=== PATIENT | female | born 1955 | race Caucasian/White ===

== ENCOUNTER 2017-01-12 02:15 | Inpatient (IN) | payer OTHER, MEDICARE ==
--- NOTE | ~2017-01-12 | DS ---
Unit #: [id number] #: [id number] Patient: MICHAEL MUÑOZ [id number] [address] [address] [id number] MR#: [id number] NAME: MICHAEL MUÑOZ. ROOM: 562 Age: 61 Sex: F Admission Date: 01/12/2017 : 1955 Discharge Date: 01/19/2017 Attending Physician: Dell Page M.D. Primary Care Physician: Dell Page M.D. DISCHARGE SUMMARY DISCHARGE DIAGNOSES 1. Right lower lobe community acquired pneumonia. 2. Chronic obstructive pulmonary disease exacerbation. 3. Acute on chronic hypoxemic hypercarbic respiratory failure. 4. Compensated respiratory acidosis. 5. Anemia. DISCHARGE MEDICATIONS 1. Advair 250/50 one inhalation b.i.d. 2. Spiriva 18 mcg 1 inhalation daily. 3. Albuterol inhaler 2 puffs q.4 h. p.r.n. 4. Aspirin, enteric coated 325 mg daily. 5. Prednisone 40 mg for 3 days, decreased by 10 mg every 3 days until off. 6. Zithromax 250 daily times 3 days. 7. O2 at 2 liters. FOLLOWUP Follow up in my office in two to three weeks. HOSPITAL COURSE The patient was admitted with right lower lobe community acquired pneumonia and exacerbation of chronic obstructive pulmonary disease with hypoxemic hypercarbic respiratory failure. Please refer to history and physical. She was treated with inhaled bronchodilators, IV Solu-Medrol, Rocephin and Zithromax. She had slow but gradual improvement with clearing of her wheezes by discharge. Her steroids have been weaned. She had a follow-up chest x-ray done, which showed clearing of the right lower lobe infiltrate. She will follow up in the office in two to three weeks. Dictated by... Rosita Lopez/link TD: 01/20/2017 09:09 JOB #: [id number] Unit #: [id number] #: [id number] Patient: MICHAEL MUÑOZ DISCHARGE SUMMARY X Dell Page MD DISCHARGE SUMMARY
--- NOTE | ~2017-01-12 | HP ---
Unit #: [id number] #: [id number] Patient: MICHAEL MUÑOZ [id number] [address] [place], [place] [address] [id number] MR#: [id number] NAME: MICHAEL MUÑOZ ROOM: 562 Age: 61 Sex: F Admission Date: 01/12/2017 : 1955 Attending Physician: Dell Page M.D. Primary Care Physician: Dell Page M.D. HISTORY AND PHYSICAL HISTORY OF PRESENT ILLNESS Ms. Muñoz is a 61-year-old white female who presents with a several day history of increased shortness of breath and cough with sputum. She said she has been laid up in bed for the last three days and has been sleeping a lot. She has felt very weak. She has had fever. She denied any chest pain, nausea, vomiting or diarrhea. She called me last night and told me she was more short of breath and coughing up yellow phlegm. We called in an antibiotic and some prednisone, but she worsened through the night and presented to the emergency room. She said she has been in the process of moving and has moved in with her daughter. Things are quite stressful there. In the emergency room chest x-ray was done, which revealed a very mild right lower lobe pneumonia with some blunting of the right costophrenic angle. White blood cell count was elevated at approximately 16,000. We were called to admit the patient. She received 2 g of Rocephin the emergency room and 500 Zithromax in the emergency room. She also received 60 of prednisone. In the emergency room her saturation on 3 liters was 94%. Her pulse was 115 and temperature was 101.5. Her flu screen was negative. PAST MEDICAL HISTORY 1. Severe chronic obstructive pulmonary disease with chronic respiratory failure, maintained on home O2. 2. History of polycythemia, followed by Dr. Rebolledo. 3. Bone marrow biopsy in the past which was unremarkable. SOCIAL HISTORY Reformed smoker times about 10 years. No alcohol or illicit drugs. Currently does not have a primary care doctor. FAMILY HISTORY Negative for coronary artery disease. ALLERGIES No known drug allergies. HOME MEDICATIONS 1. Advair 250/50. 2. Spiriva. 3. Albuterol. 4. Enteric coated aspirin. REVIEW OF SYSTEMS CONSTITUTIONAL: Has had some fever and chills. HEENT: Some rhinorrhea, nasal congestion. Unit #: [id number] #: [id number] Patient: MICHAEL MUÑOZ PULMONARY: As noted. CARDIAC: No chest pain or palpitations. GI: No nausea or vomiting. : No hematuria or dysuria. ENDOCRINE: No polyuria or polydipsia. HEMATOLOGIC: No easy bruising or bleeding. Does have a history of polycythemia. Had been on hydroxyurea. SKIN: No rash. PSYCHIATRIC: Denies depression. PHYSICAL EXAMINATION GENERAL: White female in no distress. VITALS: Blood pressure 106/76, pulse 76, respiratory rate 22, afebrile, oxygen saturation 98.9. HEENT: Normocephalic, atraumatic. Pupils equal, round and reactive. Sclerae nonicteric. Nasal passages patent. Posterior pharynx clear. Very poor dentition. Mucous membranes moist. NECK: Supple. Trachea midline. No cervical or supraclavicular lymphadenopathy. LUNGS: Diminished breath sounds. Prolonged expiratory phase. Mild expiratory wheeze. HEART: Regular rate and rhythm. Could not appreciate murmur, rub or gallop. ABDOMEN: Nontender. Bowel sounds present. No hepatosplenomegaly. EXTREMITIES: Without clubbing, cyanosis or edema. NEUROLOGIC: Awake, alert and oriented times three. Cranial nerves grossly intact. Muscle strength symmetric bilaterally. Affect calm. SKIN: Warm and dry. DIAGNOSTIC STUDIES IMAGING: Chest x-ray personally reviewed as noted. LABORATORY: As noted. All personally reviewed. ASSESSMENT 1. Right lower lobe community acquired pneumonia. 2. Acute and chronic hypoxemic hypercarbic respiratory failure. 3. Acute exacerbation of chronic obstructive pulmonary disease. 4. History of polycythemia. PLAN Will treat with inhaled bronchodilators, IV Solu-Medrol, cover with broad spectrum antibiotics for community acquired pneumonia with Rocephin and Zithromax. Administer O2 to maintain adequate saturations. DVT prophylaxis. Further recommendations pending this. Dictated by Rosita Lopez/link TD: 01/12/2017 11:43 JOB #: [id number] CC: Dell Page M.D. Unit #: [id number] #: [id number] Patient: MICHAEL MUÑOZ HISTORY AND PHYSICAL X Dell Page MD HISTORY AND PHYSICAL
--- NOTE | ~2017-01-12 | EKG ---
PATIENT: MICHAEL MUÑOZ UNIT #: [id number] Ventricular Rate: 89 BPM Atrial Rate: 89 BPM P-R Interval: 120 ms QRS Duration: 72 ms Q-T Interval: 356 ms QTC Calculation(Bezet): 433 ms P [place]: 79 degrees Calculated R [place]: 62 degrees Calculated T [place]: 62 degrees Diagnosis Line: Normal sinus rhythm Diagnosis Line: Normal ECG Diagnosis Line: When compared with ECG of 12-JAN-2017 01:30, Diagnosis Line: ST no longer depressed in Anterior leads Diagnosis Line: Confirmed by TRINIDAD ALEJO MD ([id number]) on 01/18/2017 Diagnosis Line: 7:34:28 PM INTERPRETING MD: MELO CELIS
--- NOTE | ~2017-01-12 | EKG ---
PATIENT: MICHAEL MUÑOZ UNIT #: [id number] Ventricular Rate: 106 BPM Atrial Rate: 106 BPM P-R Interval: 124 ms QRS Duration: 68 ms Q-T Interval: 310 ms QTC Calculation(Bezet): 411 ms P [place]: 84 degrees Calculated R [place]: 56 degrees Calculated T [place]: 55 degrees Diagnosis Line: Sinus tachycardia Diagnosis Line: Biatrial enlargement Diagnosis Line: Nonspecific ST abnormality Diagnosis Line: Abnormal ECG Diagnosis Line: When compared with ECG of 26-FEB-2015 19:16, Diagnosis Line: ST now depressed in Inferior leads Diagnosis Line: ST now depressed in Anterior leads Diagnosis Line: Nonspecific T wave abnormality now evident in Diagnosis Line: Anterior leads Diagnosis Line: Confirmed by TRINIDAD ALEJO MD ([id number]) on 01/13/2017 Diagnosis Line: 6:38:57 AM INTERPRETING MD: MELO CELIS
--- NOTE | ~2017-01-12 | CR63 ---
[facility] A Service of [facility] & [facility] RADIOLOGY TEXT RESULTS PATIENT: MICHAEL MUÑOZ LOCATION: [facility] 562- : 53 UNIT #: [id number] AGE: [address]: Dell Page MD SEX: F ORDER DR: [id number] [facility] [address] [facility] [place], [place] [address] [id number] I MR#: [id number] Acc #: [id number] NAME: MICHAEL MUÑOZ : 1955 SEX: F STUDY DATE/TIME: 01/16/2017 13:48 UNIT: [facility] ROOM: [facility] STUDY DESCRIPTION: CR Chest 2 View Attending Physician: Dell Page M.D. Ordering Physician: Dell Page M.D. Primary Care Physician: Dell Page M.D. MEDICAL IMAGING REPORT This report is preliminary unless electronic signature is present EXAM PA and lateral chest, 01/16/2017 COMPARISON Chest radiograph, 01/12/2017 HISTORY Pneumonia. Respiratory failure. Symptoms beginning 1 week ago. FINDINGS PA and lateral views are obtained. The heart size is normal. The pulmonary vascular pattern in the chest is normal. Previous study showed an infiltrate in the right base. This appears to have cleared. There is some chronic scarring in the right base. CONCLUSION Interim clearing of right-sided pulmonary infiltrate. Chronic scarring right base. Dictated by... Roderick Eugene M.D. THIS IS AN ELECTRONICALLY VERIFIED REPORT Roderick Eugene M.D. at 01/16/2017 5:07 PM Donya TD: 01/16/2017 15:57 JOB #: [id number] MEDICAL IMAGING REPORT COPY
--- NOTE | ~2017-01-12 | CR72 ---
[facility] A Service of [facility] & [facility] RADIOLOGY TEXT RESULTS PATIENT: MICHAEL MUÑOZ LOCATION: [facility] : 53 UNIT #: [id number] AGE: [address]: Dell Page MD SEX: F ORDER DR: [id number] [facility] [address] [place], [place] [address] [id number] MR#: [id number] Acc #: [id number] NAME: MICHAEL MUÑOZ. : 1955 SEX: F STUDY DATE/TIME: 01/12/2017 01:36 UNIT: [facility] ROOM: STUDY DESCRIPTION: CR Chest Single View Portable Attending Physician: Jose Robertson D.O. Ordering Physician: Ed Dyllan Bautista M.D. Primary Care Physician: Dell Page M.D. MEDICAL IMAGING REPORT This report is preliminary unless electronic signature is present EXAM Portable chest, 01/12/2017 at 01:36 INDICATION Shortness of air and weakness for the last 3 days. History of bone marrow cancer. FINDINGS AP portable chest compared with 03/08/2015. Cardiac and mediastinal contours are normal. There is emphysema. There are infiltrates in the right xud-ke-wnvlm lung concerning for pneumonia, and there is a trace amount of right pleural fluid. IMPRESSION Emphysema with infiltrates in the right jay-if-dvcdv lung concerning for pneumonia. There is a trace amount of right pleural fluid as well. Dictated by... Wei Bazan Jr., M.D. THIS IS AN ELECTRONICALLY VERIFIED REPORT Wei Bazan Jr., M.D. at 01/12/2017 5:29 AM CHARLIE/alesia TD: 01/12/2017 02:53 JOB #: [id number] MEDICAL IMAGING REPORT COPY
[2017-01-12 01:26] LABS: ARTERIAL BLD GAS O2 SATURATION 94.2 % (90.0-100.0); ARTERIAL BLOOD GAS ALLEN TEST NORMAL; ARTERIAL BLOOD GAS ART SITE LEFT RADIAL; ARTERIAL BLOOD GAS CARBOXY HB 1.1 %sat (0.0-9.0); ARTERIAL BLOOD GAS DELIVERY NASAL CANNULA; ARTERIAL BLOOD GAS LITER FLOW 3.5; ARTERIAL BLOOD GAS MET HB 0.8 %sat (0.0-2.0); ARTERIAL BLOOD GAS PCO2 53.5 mmHg (35.0-45.0); ARTERIAL BLOOD GAS PO2 70.8 mmHg (80.0-100); ARTERIAL BLOOD GAS pH 7.411 (7.350-7.450); ARTERIAL DRAW? YES
[2017-01-12 01:33] LABS: BASOPHIL# 0.1 X10e3 (0-0.3); BASOPHIL% 0.4 % (0-2.5); EOSINOPHIL% 0.1 % (0.0-7.0); HEMATOCRIT 34.9 % (35.0-45.0); HEMOGLOBIN 11.4 gm/dL (12.0-16.0); LYMPHOCYTE# 0.4 X10e3 (1.0-3.5); LYMPHOCYTE% 2.6 % (17.0-45.0); MEAN CELL VOLUME 101.4 FL (83-96); MEAN CORPUSCULAR HGB CONC 32.6 g/dL (30-36); MEAN PLATELET VOLUME 9.3 FL (6.5-11.5); MONOCYTE# 1.1 X10e3 (0-1.0); MONOCYTE% 6.8 % (3.0-12.0); NEUTROPHIL# 15.1 X10e3 (1.5-7.1); NEUTROPHIL% 90.1 % (40-75); PLATELET COUNT 367 X10e3 (140-420); RED BLOOD COUNT 3.44 X10e (3.90-5.30); RED CELL DISTRIBUTION WIDTH 14.6 % (11.0-15.5); WHITE BLOOD COUNT 16.8 X10e3 (4.0-10.5)
[2017-01-12 01:34] LABS: DIFF IND YES
[2017-01-12 01:36] LABS: POC - CKMB <1.0 ng/mL (0.0-7.9); POC - TROPONIN <0.05 ng/mL (<=0.05)
[2017-01-12 01:45] LABS: INFLUENZA A NEG (NEG); INFLUENZA B NEG (NEG)
[2017-01-12 01:49] LABS: ALBUMIN SERUM 3.3 g/dL (3.5-5.0); ALKALINE PHOSPHATASE 53 U/L (32-92); ALT (SGPT) 12 U/L (10-40); ANISOCYTOSIS SL; AST (SGOT) 18 U/L (10-42); BILIRUBIN, DIRECT 0.3 mg/dL (0.0-0.2); BILIRUBIN,INDIRECT 1.1 mg/dL (0.0-0.9); BILIRUBIN,TOTAL 1.4 mg/dL (0.2-2.0); BLOOD UREA NITROGEN 12 mg/dL (9-23); CALCIUM SERUM 8.7 mg/dL (8.4-10.2); CARBON DIOXIDE 31 mmol/L (22-31); CHLORIDE 95 mmol/L (100-111); CREATININE SERUM 0.5 mg/dL (0.6-1.4); GLOM FILT RATE Estimated ABOVE60 mL/min (>60); GLUCOSE FASTING 100 mg/dL (70-110); PLATELET ESTIMATE NORMAL (NORMAL); PROTEIN TOTAL SERUM 6.9 g/dL (6.0-8.3); SODIUM 135 mmol/L (135-145)
[~2017-01-12 02:15] MED LIST: ACETAMINOPHEN PO; ADVAIR 250-501 EACH IH; ADVAIR 2501 DISK W/D PO; ALBUTEROL 0.5ML INH; ALBUTEROL MININEB NEB; ALBUTEROL17 GM INH; ALBUTEROL20 ml INH; ASMANEX0.24 G3 IH; ASPIR-TRIN325 MG PO; ASPIRIN ENTERI325 M1 PO; ASPIRIN325 M1 PO; CLARITIN D PO; CLARITIN-D1 TAB 12 H PO; CLARITIN-D1 TAB 24 H PO; CLARITIN-D1 TAB 241 PO; COMBIVENT MININEB INH; FLEXERIL10 MG PO; HYDROCODON-ACE1 EACH PO; HYDROXYUREA500 M1; HYDROXYUREA500 M1 PO; LEVAQUIN PO; LORTAB 7.5-5001 TAB PO; MOBIC15 MG PO; NEURONTIN PO; NEURONTIN600 MG PO; OMEPRAZOLE20 M1 PO; OMEPRAZOLE40 M1 PO; PREDNISONE PO; PROTONIX PO; QVAR7.3 GM INH; SPIRIVA18 MCG INH; TAMIFLU75 M1 PO; ULTRAM PO; VICODIN 5/500 T1 TAB PO; ZITHROMAX PO; [UNRECOGNIZED DRUG - REMARK]
[2017-01-12 04:08] LABS: POC - CKMB <1.0 ng/mL (0.0-7.9); POC - TROPONIN <0.05 ng/mL (<=0.05)
[2017-01-17 07:22] LABS: HEMATOCRIT 31.3 % (35.0-45.0); MEAN CELL VOLUME 101.6 FL (83-96); MEAN CORPUSCULAR HEMOGLOBIN 32.5 PG (28-34); MEAN PLATELET VOLUME 9.2 FL (6.5-11.5); RED BLOOD COUNT 3.08 X10e (3.90-5.30); RED CELL DISTRIBUTION WIDTH 13.9 % (11.0-15.5)
[2017-01-17 08:20] LABS: BLOOD UREA NITROGEN 25 mg/dL (9-23); BUN/CREATININE RATIO 41.66; CALCIUM SERUM 8.6 mg/dL (8.4-10.2); CARBON DIOXIDE 37 mmol/L (22-31); CHLORIDE 98 mmol/L (100-111); CREATININE SERUM 0.6 mg/dL (0.6-1.4); GLOM FILT RATE Estimated ABOVE60 mL/min (>60); GLUCOSE FASTING 121 mg/dL (70-110); POTASSIUM 5.1 mmol/L (3.5-5.1); SODIUM 141 mmol/L (135-145)
[2017-01-17 21:19] LABS: BLOOD UREA NITROGEN 28 mg/dL (9-23); CARBON DIOXIDE 38 mmol/L (22-31); CHLORIDE 100 mmol/L (100-111); CK TOTAL 23 IU/L (26-140); CREATININE SERUM 0.7 mg/dL (0.6-1.4); GLOM FILT RATE Estimated ABOVE60 mL/min (>60); GLUCOSE FASTING 103 mg/dL (70-110); MAGNESIUM 2.3 mg/dL (1.6-3.0); POTASSIUM 4.6 mmol/L (3.5-5.1); SODIUM 139 mmol/L (135-145)
[2017-01-17 21:34] LABS: CALCIUM SERUM 8.5 mg/dL (8.4-10.2)
[2017-01-19] MEDS ORDERED: AZITHROMYCIN250 MG PO (12:10)
[2017-01-19] MEDS ORDERED: PREDNISONE10 MG/DOSE PO (12:11)
== END 2017-01-19 14:26 | disposition home or self-care (01) | DRG 189 ==
LOC: CED 02:15 → CEDOF 03:10 → C5B 05:49
PROVIDERS: Emergency Medicine; Internal Medicine
DX: J96.21 Acute and chronic respiratory failure with hypoxia (principal); J18.9 Pneumonia, unspecified organism; E87.2 Acidosis; J44.0 Chronic obstructive pulmonary disease with (acute) lower respiratory infection; J44.1 Chronic obstructive pulmonary disease with (acute) exacerbation; D64.9 Anemia, unspecified
CPT/HCPCS: 36415; 36600; 71010; 71020; 80048; 80076; 82550; 82553; 82803; 83605; 83735; 84484; 85025; 85027; 87040; 87070; 87205; 87651; 87804; 87880; 93005; 94640; 94664; 94760; 96365; 97162; 99285; G0238; J0456; J0696; J1650; J2920

== ENCOUNTER 2017-06-14 06:12 | Inpatient (IN) | payer OTHER ==
[~2017-06-14] VITALS: Ht 154.9 cm; Wt 61.0 kg
--- NOTE | ~2017-06-14 | EKG ---
PATIENT: MICHAEL MUÑOZ UNIT #: [id number] Ventricular Rate: 90 BPM Atrial Rate: 90 BPM P-R Interval: 114 ms QRS Duration: 74 ms Q-T Interval: 364 ms QTC Calculation(Bezet): 445 ms P [place]: 85 degrees Calculated R [place]: 58 degrees Calculated T [place]: -126 degrees Diagnosis Line: Normal sinus rhythm Diagnosis Line: Minimal voltage criteria for LVH, may be normal Diagnosis Line: variant Diagnosis Line: ST and Marked T wave abnormality, consider Diagnosis Line: anterolateral ischemia Diagnosis Line: Abnormal ECG Diagnosis Line: When compared with ECG of 16-JUN-2017 05:55, Diagnosis Line: (unconfirmed) Diagnosis Line: T wave inversion more evident in Inferior leads Diagnosis Line: T wave inversion less evident in Lateral leads Diagnosis Line: Confirmed by TRINIDAD ALEJO MD ([id number]) on 06/21/2017 Diagnosis Line: 7:41:15 AM INTERPRETING MD: MELO CELIS
--- NOTE | ~2017-06-14 | US83 ---
[facility] A Service of [facility] & [facility] RADIOLOGY TEXT RESULTS PATIENT: MICHAEL MUÑOZ LOCATION: [facility] 575-01 : 53 UNIT #: [id number] AGE: [address]: Dell Page MD SEX: F ORDER DR: [id number] [facility] [address] [place], [place] [address] [id number] I MR#: [id number] Acc #: [id number] NAME: MICHAEL MUÑOZ : 1955 SEX: F STUDY DATE/TIME: 06/20/2017 13:09 UNIT: [facility] ROOM: [facility] STUDY DESCRIPTION: US [employer] Attending Physician: Dell Page M.D. Referring Physician: Sudheer Locke M.D. Ordering Physician: Ed Dyllan Bautista M.D. Primary Care Physician: Dell Page M.D. MEDICAL IMAGING REPORT This report is preliminary unless electronic signature is present EXAM Right groin ultrasound with Doppler. HISTORY Right groin pain and swelling and bruising for 4 days following cardiac catheterization. FINDINGS Ultrasound examination of the right groin was performed with keller-scale, and color Doppler. There is no hematoma or pseudoaneurysm. The common femoral and proximal superficial femoral arteries and veins are patent. IMPRESSION Negative ultrasound examination of the right groin with keller-scale and Doppler. No hematoma or pseudoaneurysm. Dictated by... Shane Ortiz M.D. THIS IS AN ELECTRONICALLY VERIFIED REPORT Shane Ortiz M.D. at 06/21/2017 3:15 PM KATY/reza TD: 06/20/2017 20:01 JOB #: [id number] MEDICAL IMAGING REPORT Page 1 of 1 COPY
--- NOTE | ~2017-06-14 | EKG ---
PATIENT: MICHAEL MUÑOZ UNIT #: [id number] Ventricular Rate: 81 BPM Atrial Rate: 81 BPM P-R Interval: 124 ms QRS Duration: 72 ms Q-T Interval: 410 ms QTC Calculation(Bezet): 476 ms P [place]: 73 degrees Calculated R [place]: 31 degrees Calculated T [place]: 168 degrees Diagnosis Line: Normal sinus rhythm Diagnosis Line: ST and Marked T wave abnormality, consider Diagnosis Line: anterolateral ischemia Diagnosis Line: Prolonged QT Diagnosis Line: Abnormal ECG Diagnosis Line: When compared with ECG of 15-JUN-2017 18:38, Diagnosis Line: T wave inversion less evident in Inferior leads Diagnosis Line: T wave inversion more evident in Lateral leads Diagnosis Line: Confirmed by TRINIDAD ALEJO MD ([id number]) on 06/21/2017 Diagnosis Line: 7:29:17 AM INTERPRETING MD: MELO CELIS
--- NOTE | ~2017-06-14 | EKG ---
PATIENT: MICHAEL MUÑOZ UNIT #: [id number] Ventricular Rate: 79 BPM Atrial Rate: 79 BPM P-R Interval: 116 ms QRS Duration: 70 ms Q-T Interval: 386 ms QTC Calculation(Bezet): 442 ms P [place]: 87 degrees Calculated R [place]: 44 degrees Calculated T [place]: -152 degrees Diagnosis Line: Normal sinus rhythm Diagnosis Line: ST and Marked T wave abnormality, consider Diagnosis Line: anterolateral ischemia Diagnosis Line: Abnormal ECG Diagnosis Line: When compared with ECG of 17-JUN-2017 17:21, Diagnosis Line: (unconfirmed) Diagnosis Line: T wave inversion more evident in Lateral leads Diagnosis Line: Confirmed by TRINIDAD ALEJO MD ([id number]) on 06/21/2017 Diagnosis Line: 7:42:21 AM INTERPRETING MD: MELO CELIS
--- NOTE | ~2017-06-14 | EKG ---
PATIENT: MICHAEL MUÑOZ UNIT #: [id number] Ventricular Rate: 80 BPM Atrial Rate: 80 BPM P-R Interval: 120 ms QRS Duration: 76 ms Q-T Interval: 388 ms QTC Calculation(Bezet): 447 ms P [place]: 80 degrees Calculated R [place]: 67 degrees Calculated T [place]: -111 degrees Diagnosis Line: Normal sinus rhythm Diagnosis Line: ST and Marked T wave abnormality, consider Diagnosis Line: anterolateral ischemia Diagnosis Line: Abnormal ECG Diagnosis Line: When compared with ECG of 15-JUN-2017 08:36, Diagnosis Line: No significant change was found Diagnosis Line: Confirmed by KHLOE CHAVEZ MD ([id number]) on Diagnosis Line: 06/16/2017 7:31:46 AM INTERPRETING MD: KATHY CELIS
--- NOTE | ~2017-06-14 | DS ---
Unit #: [id number] #: [id number] Patient: MICHAEL MUÑOZ [id number] [address] [place], [place] [address] [id number] I MR#: [id number] NAME: MICHAEL MUÑOZ ROOM: 575 Age: 61 Sex: F Admission Date: 06/14/2017 : 1955 Discharge Date: 06/19/2017 Attending Physician: Dell Page M.D. Primary Care Physician: Dell Page M.D. DISCHARGE SUMMARY DISCHARGE DIAGNOSES 1. Chronic obstructive pulmonary disease exacerbation. 2. Acute and chronic hypoxemic/hypercarbic respiratory failure. 3. Coronary artery disease, now status post PCI of LAD. 4. E. coli urinary tract infection. 5. E. coli bacteremia. 6. Steroid induced diabetes mellitus. DISCHARGE MEDICATIONS 1. Albuterol inhaler or nebulizer every 4 hours as needed. 2. Advair 250/50 one inhalation b.i.d. 3. Spiriva handihaler, one inhalation daily. 4. Claritin-D 24 hour, one daily as needed. 5. Metoprolol 25 mg p.o. b.i.d. 6. Atorvastatin 40 mg daily. 7. Lisinopril 5 mg q.h.s. 8. Aspirin 81 mg daily. 9. Brilinta 90 mg q.12 hours. 10. Prilosec 40 mg daily. 11. Nitroglycerin 0.4 as needed for chest pain. 12. Septra 1 p.o. b.i.d. x3 more days. HOSPITAL COURSE 61-year-old white female with severe COPD and chronic respiratory failure presented with increased cough, shortness of breath and purulent sputum production. Chest x-ray revealed hyperinflation, flattened diaphragms, no infiltrate. EKG revealed ST-wave depression laterally. Cardiac enzymes were negative. She was treated with inhaled bronchodilators, IV Solu-Medrol, covered with broad-spectrum antibiotics in the form of Rocephin and Zithromax. She was noted to have evidence of pyuria on urinary tract infection. Blood cultures and urine cultures returned positive for E. coli which was sensitive to Septra, Rocephin and nitrofurantoin. She was changed to cefepime because of allergies and had no untoward complications from that. She was seen by Cardiology because of abnormal EKG. She underwent echocardiogram which revealed ejection fraction of 50%, mitral annular calcification with mild mitral regurgitation. Normal right ventricular systolic pressure. She underwent cardiac catheterization and was found to have a LAD lesion and underwent PCI. She has a slight bump in her troponin post-procedure but has remained stable. Her medications have been adjusted per Cardiology. She had been placed on Brilinta. As far as her COPD was concerned, she was treated with inhaled bronchodilators, IV Solu-Medrol with improvement. She was covered with sliding scale insulin for steroid-induced diabetes. Unit #: [id number] #: [id number] Patient: MICHAEL MUÑOZ She had resolution of her wheezes. Her steroids have been weaned to oral prednisone. She has minimal sputum production. Follow up chest x-ray showed no infiltrate. She did note the last day that she had some blood after a bowel movement. Her hematocrit on the 16 of June was 30.3, on the , on the , it was 35.5. On January 17, 2017, it was 31.3. So her hematocrit has remained stable, but another hematocrit is being checked prior to discharge. On rectal, she did not have any obvious external hemorrhoids. If hematocrit is stable, we will have her follow up with Gastroenterology. She has never had a colonoscopy. She will follow up with Dr. Dempsey on July 25 at 11 a.m. and will follow up in my office in 4 weeks. Dictated by... Dell Page M.D. ERICH/reza TD: 06/20/2017 21:49 JOB #: [id number] DISCHARGE SUMMARY Page 1 of 1 X Dell Page MD DISCHARGE SUMMARY
--- NOTE | ~2017-06-14 | EKG ---
PATIENT: MICHAEL MUÑOZ UNIT #: [id number] Ventricular Rate: 91 BPM Atrial Rate: 91 BPM P-R Interval: 124 ms QRS Duration: 76 ms Q-T Interval: 384 ms QTC Calculation(Bezet): 472 ms P [place]: 82 degrees Calculated R [place]: 54 degrees Calculated T [place]: -118 degrees Diagnosis Line: Normal sinus rhythm Diagnosis Line: ST and Marked T wave abnormality, consider Diagnosis Line: anterolateral ischemia Diagnosis Line: Prolonged QT Diagnosis Line: Abnormal ECG Diagnosis Line: When compared with ECG of 14-JUN-2017 06:29, Diagnosis Line: Inverted T waves have replaced nonspecific T wave Diagnosis Line: abnormality in Inferior leads Diagnosis Line: Confirmed by ROSE MAE MD ([id number]) on Diagnosis Line: 06/15/2017 3:54:33 PM INTERPRETING MD: JOMAR
--- NOTE | ~2017-06-14 | EKG ---
PATIENT: MICHAEL MUÑOZ UNIT #: [id number] Ventricular Rate: 100 BPM Atrial Rate: 100 BPM P-R Interval: 118 ms QRS Duration: 72 ms Q-T Interval: 360 ms QTC Calculation(Bezet): 464 ms P [place]: 82 degrees Calculated R [place]: 56 degrees Calculated T [place]: 125 degrees Diagnosis Line: Normal sinus rhythm Diagnosis Line: ST and Marked T wave abnormality, consider Diagnosis Line: anterolateral ischemia Diagnosis Line: Abnormal ECG Diagnosis Line: When compared with ECG of 17-JAN-2017 20:52, Diagnosis Line: ST now depressed in Anterior leads Diagnosis Line: Nonspecific T wave abnormality now evident in Diagnosis Line: Inferior leads Diagnosis Line: T wave inversion now evident in Anterolateral Diagnosis Line: leads Diagnosis Line: Confirmed by KHLOE CHAVEZ MD ([id number]) on Diagnosis Line: 06/14/2017 12:01:00 PM INTERPRETING MD: KATHY CELIS
--- NOTE | ~2017-06-14 | CR72 ---
[facility] A Service of [facility] RADIOLOGY TEXT RESULTS PATIENT: MICHAEL MUÑOZ LOCATION: [facility] 57- : 53 UNIT #: [id number] AGE: [address]: Dell Page MD SEX: F ORDER DR: [id number] [facility] [address] [facility] [place], [place] [address] [id number] MR#: [id number] Acc #: [id number] NAME: MICHAEL MUÑOZ : 1955 SEX: F STUDY DATE/TIME: 06/15/2017 6:32 UNIT: [facility] ROOM: [facility] STUDY DESCRIPTION: CR Chest Single View Portable Attending Physician: Dell Page M.D. Ordering Physician: Dell Page M.D. Primary Care Physician: Dell Page M.D. MEDICAL IMAGING REPORT This report is preliminary unless electronic signature is present EXAM Frontal chest, 06/15/2017 INDICATIONS 61-year-old female with fever, cough and shortness of air with headaches that began today. COPD. TECHNIQUE Frontal chest COMPARISON 06/14/2017 FINDINGS Cardiac silhouette is stable. The vascularity is within normal limits. Lungs demonstrate sequela of COPD. No new consolidation, effusion or pneumothorax. IMPRESSION Chronic lung changes. No significant change from 06/14/2017. Dictated by... Vidal Drake M.D. THIS IS AN ELECTRONICALLY VERIFIED REPORT Vidal Drake M.D. at 06/15/2017 5:12 PM Yan TD: 06/15/2017 08:27 JOB #: [id number] MEDICAL IMAGING REPORT Page 1 of 1 COPY
--- NOTE | ~2017-06-14 | DS ---
Unit #: [id number] #: [id number] Patient: MICHAEL MUÑOZ [id number] [address] [place], [place] [address] [id number] I MR#: [id number] NAME: MICHAEL MUÑOZ ROOM: 575 Age: 61 Sex: F Admission Date: 06/14/2017 : 1955 Discharge Date: 06/21/2017 Attending Physician: Dell Page M.D. Primary Care Physician: Dell Page M.D. DISCHARGE SUMMARY ADDENDUM A repeat hematocrit was done, which was 28. It was stable from the day before. She was seen by Dr. Armstrong and discussed with Dr. Dempsey. Dr. Dempsey felt she needed to be on Brilinta for approximately 4 weeks, and she will have H and H followed and then may have a colonoscopy after a month. She will follow up in my office for her lung disease, follow up with Dr. Armstrong per his recommendations and per Dr. Dempsey per her recommendations. Dictated by... Dell Page M.D. ERICH/sangeeta TD: 06/22/2017 10:26 JOB #: [id number] DISCHARGE SUMMARY Page 1 of 1 X Dell Page MD DISCHARGE SUMMARY
--- NOTE | ~2017-06-14 | CO ---
Unit #: [id number] #: [id number] Patient: MICHAEL MUÑOZ [id number] [address] [place], [place] [address] [id number] I MR#: [id number] NAME: MICHAEL MUÑOZ ROOM: 575 Age: 61 Sex: F Admission Date: 06/14/2017 : 1955 Attending Physician: Dell Page M.D. Primary Care Physician: Dell Page M.D. Consultation Date: 06/20/2017 CONSULTATION REPORT REASON FOR CONSULTATION Lower gastrointestinal bleed in a patient on long-term anticoagulation with Brilinta, and severe COPD. HISTORY OF PRESENT ILLNESS Ms. Muñoz is a very pleasant 61-year-old rather frail white female, who has longstanding history of COPD and chronic respiratory failure. The patient was admitted with increasing cough, shortness of breath, and purulent sputum production along with history of fever with chills. She upon admission underwent cardiac evaluation and has been placed on Brilinta, because of the fact that she has an angioplasty and drug eluting stents. I have been asked to see her because she had painless intermittent hematochezia primarily on wiping and defecation. In addition, there is a 2 g drop in hemoglobin. The patient says she has not had any bleeding since after couple of episodes when "she was on blood thinner." There is no history of any abdominal pain. Her appetite is unchanged. PAST MEDICAL HISTORY Significant for history of chronic respiratory failure with an acute exacerbation, history of COPD exacerbation, history of polycythemia followed by Dr. Rebolledo, and severe COPD. MEDICATIONS At home included Advair, Spiriva, albuterol, enteric-coated aspirin, omeprazole, and Claritin-D. In the hospital, she has been started on Brilinta. ALLERGIES She has no known drug allergies. SOCIAL HISTORY She is a reformed smoker of more than 8 years. Does not drink any alcohol. Lives with her sister. Has a somewhat limited mobility. She is a . FAMILY HISTORY None of colon, pancreatic cancer, or liver disease. REVIEW OF SYSTEMS Detailed review of organ systems does not reveal any recent weight loss. There is history of fever and chills. There is history of cough with purulent expectoration. No history of dysuria, hematuria, or pyuria. No history of focal seizures or extremity weakness. There is history of Unit #: [id number] #: [id number] Patient: MICHAEL MUÑOZ overt GI bleed in the form of hematochezia. Rest of the review of organ systems are unremarkable. PHYSICAL EXAMINATION GENERAL: She is awake, alert, and oriented, and appears frail. VITAL SIGNS: Stable with a temperature of 98.0, pulse is 86 per minute and regular, respiratory rate 16, blood pressure is 120/63. She weighs 132 pounds, which is close to her baseline weight. HEENT: She has mild pallor. There being no icterus, lymphadenopathy, or peripheral edema. CARDIOVASCULAR: Normal heart sounds. No murmurs on auscultation. LUNGS: Reveal bilateral diminished symmetric air entry. ABDOMEN: Soft and nontender. Liver and spleen are not palpable. Bowel sounds normal. DIAGNOSTIC STUDIES LABORATORY RESULTS: Shows a normochromic normocytic anemia with hemoglobin of 9.2, baseline hemoglobin is 11. White count is 11,000 with left shift, and platelet count is 408. Serum chemistry shows a BUN and creatinine of 35 and 0.7, and normal LFTs. The patient's hemoglobin dropped by 2 g since after admission. CLINICAL IMPRESSION 1. Lower gastrointestinal bleed. 2. Anemia of acute gastrointestinal blood loss. 3. Underlying chronic obstructive pulmonary disease acute exacerbation. 4. Chronic respiratory failure. 5. On long-term anticoagulation with Brilinta. After evaluation, the patient had discussion with Dr. 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 We should therefore wait at least 3 to 4 months before proceeding with the examination. It is noteworthy the patient has never had a colonoscopy and the differential diagnosis of hematochezia is internal hemorrhoids, colorectal neoplasia, and AVMs. The above point was discussed with the patient and also Dr. Page and the patient will be scheduled to see us in the office on , 08/24/2017 at 9:30 a.m. Thank you very much for asking me to see this pleasant woman. I appreciate the consult. Dictated by... Alexi Armstrong M.D. NALLELY/modl TD: 06/20/2017 18:46 JOB #: [id number] Raquel Dempsey M.D. Unit #: [id number] #: [id number] Patient: MICHAEL MUÑOZ CONSULTATION REPORT Page 1 of 1 X Alexi Armstrong MD CONSULTATION REPORT
--- NOTE | ~2017-06-14 | CR72 ---
[facility] A Service of [facility] RADIOLOGY TEXT RESULTS PATIENT: MICHAEL MUÑOZ LOCATION: [facility] 575- : 53 UNIT #: [id number] AGE: [address]: Dell Page MD SEX: F ORDER DR: [id number] [facility] [address]. [place], [place] [address] [id number] E MR#: [id number] Acc #: [id number] NAME: MICHAEL MUÑOZ. : 1955 SEX: F STUDY DATE/TIME: 06/14/2017 6:44 UNIT: ANDREA ROOM: STUDY DESCRIPTION: CR Chest Single View Portable Attending Physician: Cash Palacios M.D. Ordering Physician: Suzanne Vázquez Primary Care Physician: Dell Page M.D. MEDICAL IMAGING REPORT This report is preliminary unless electronic signature is present EXAM Portable chest 06/14/2017 HISTORY 61-year-old female with shortness of air and cough beginning today. COMPARISON: Chest 01/16/2017 FINDINGS Frontal chest demonstrates clear lungs. No pleural effusion or pneumothorax. Heart size and mediastinum are normal. Pulmonary vasculature normal. IMPRESSION No acute cardiopulmonary findings Dictated by... Compa Li M.D. THIS IS AN ELECTRONICALLY VERIFIED REPORT Compa Li M.D. at 06/15/2017 7:17 AM JOHNSON/vito TD: 06/14/2017 10:44 JOB #: [id number] MEDICAL IMAGING REPORT Page 1 of 1 COPY
--- NOTE | ~2017-06-14 | CO ---
Unit #: [id number] #: [id number] Patient: MICHAEL MUÑOZ [id number] [address] [place], [place] [address] [id number] I MR#: [id number] NAME: MICHAEL MUÑOZ ROOM: 575 Age: 61 Sex: F Admission Date: 06/14/2017 : 1955 Attending Physician: Dell Page M.D. Primary Care Physician: Dell Page M.D. CONSULTATION REPORT REASON FOR CONSULTATION Abnormal EKG. HISTORY OF PRESENT ILLNESS This is a 61-year-old white female, who presented to the emergency room with complaint of shortness of breath and cough for the past 2 weeks. She said she had a productive sputum with green to yellow that has progressively worsened. She has shortness of breath when she has lay down and is unable to get comfortable. Yesterday, she felt a little better, but at mid day she developed an onset of weakness where she had no energy. She felt as though she had a fever. Later on in the evening, she took her temperature, which was 103. She came to the emergency room for evaluation, where she was found to have COPD exacerbation. Her chest x-ray was normal. White count is normal. An EKG was obtained, which found the patient to have anterolateral ischemic changes, for which Cardiology was consulted. From a cardiac standpoint, the patient states she has had a complaint of left anterior chest pressure that she feels as a weight was on her chest that lasts for 15 to 20 minutes, has occurred intermittently. Chest pressure is mostly relieved with rest. On occasion, she has sharp left anterior chest pain that lasts for just a few seconds. She reports dizziness when she lays down. Has palpitations "all the time." She has had no prior cardiac history or workup. She denies a history of hypertension, hyperlipidemia, or diabetes. Her only risk factors for ischemic heart disease includes nicotine abuse, her activities of daily living because of her persistent dyspnea. PAST MEDICAL HISTORY 1. COPD, on home oxygen. 2. Asthma. 3. Questionable myeloma, followed by Dr. Rebolledo. 4. 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 Rebolledo and has been taking chemotherapy in the past. 5. Former smoker. PAST SURGICAL HISTORY No previous surgeries. SOCIAL HISTORY The patient lives with her sister. She is a . She quit smoking 8 years ago, but previously smoked one pack of cigarettes a day since age 14. Her sister still smokes in the house. She denies illicit drug or Unit #: [id number] #: [id number] Patient: MICHAEL MUÑOZ alcohol use. FAMILY HISTORY Negative for coronary artery disease. ALLERGIES Metal and niacin. HOME MEDICATIONS Advair 250/50 Diskus one inhalation b.i.d., Spiriva 1 inhalation daily, aspirin 325 mg daily, albuterol per mini nebs t.i.d., albuterol 2 puffs q.i.d. p.r.n., omeprazole 40 mg daily, Claritin 10 mg daily. REVIEW OF SYSTEMS CONSTITUTIONAL: Positive for weakness and fatigue. Has no weight gain or weight loss. Reports fever of 103. HEENT: No headache, hearing or vision change, difficulty with swallowing. Has dizziness when lying flat. CARDIOVASCULAR: Has chest pain and palpitations as described in the HPI. Denies paroxysmal nocturnal dyspnea or orthopnea. No syncope or near syncope. RESPIRATORY: Positive for dyspnea at rest, worse on exertion. Has a productive cough with green to yellow sputum. No hemoptysis. GASTROINTESTINAL: No abdominal pain, nausea, or vomiting. No constipation or melena. EXTREMITIES: Negative for lower extremity edema. PHYSICAL EXAMINATION VITAL SIGNS: Blood pressure 109/61, heart rate 86, temperature 97.4. BMI of 20. GENERAL: This is an ill-appearing 61-year-old white female, who appears older than stated age. NEUROLOGIC: She is awake, alert, and oriented. There are no focal weaknesses. NECK: Trachea is midline. No thyromegaly or lymphadenopathy. No jugular venous distention. HEART: S1, S2. Heart sounds are normal. No murmurs. No rubs or clicks. Regular rate and rhythm. LUNGS: With diminished breath sounds. All lung casanova with scattered expiratory wheezes. No rhonchi or rales. ABDOMEN: Soft and nontender with bowel sounds are present. No organomegaly. EXTREMITIES: With palpable pedal pulses without leg edema. SKIN: Pale and dry. DIAGNOSTIC STUDIES LABORATORY RESULTS: Glucose 102, BUN 20, creatinine 1.0, sodium 134, potassium 4.1. White count 6.3, hemoglobin 11.4, hematocrit 35.5, and platelet count is 285. Troponin less than 0.05. IMAGING STUDIES: Chest x-ray shows no active disease. CARDIOVASCULAR STUDIES: EKG; normal sinus rhythm with a rate of 100 beats per minute with questionable right atrial enlargement. There is deep T-wave inversion in V3 through V6 with T-wave inversion in I and aVL. IMPRESSION 1. Acute on chronic respiratory failure. Unit #: [id number] #: [id number] Patient: MICHAEL MUÑOZ 2. Chronic obstructive pulmonary disease exacerbation. 3. Abnormal EKG with anterolateral ischemic changes. 4. Chest pain, questionable ischemic in origin. PLAN 1. Cardiology was consulted for abnormal EKG. The patient's symptoms could be secondary to coronary artery disease. She has new ST-wave inversion in the anterolateral leads. 2. We will check 2D echocardiogram to evaluate left ventricular systolic function for wall motion abnormalities. 3. The patient may require stress test versus cardiac catheterization. 4. TSH and lipid profile will be obtained. 5. Further recommendations pending results of the echocardiogram. 6. We will start the patient on aspirin. Thank you for allowing us to assist with this patient's care. Dictated by... Althea Dawkins/eunice TD: 06/15/2017 02:14 JOB #: [id number] CONSULTATION REPORT Page 1 of 1 X Rubén Neil APRN X CONSULTATION REPORT
--- NOTE | ~2017-06-14 | HP ---
Unit #: [id number] #: [id number] Patient: MICHAEL MUÑOZ [id number] [address] [address] [id number] I MR#: [id number] NAME: MICHAEL MUÑOZ. ROOM: 05695 Age: 61 Sex: F Admission Date: 06/14/2017 : 1955 Attending Physician: Dell Page M.D. Primary Care Physician: Dell Page M.D. HISTORY AND PHYSICAL HISTORY OF PRESENT ILLNESS Ms. Muñoz is a 61-year-old white female with a history of COPD and chronic respiratory failure who presents with a two-week history of increased cough, shortness of breath, and purulent sputum production. She thinks she has had fever and chills. She has tried to get an appointment with her primary care physician but was unable to get in until June 30. Her condition worsened, and she presented to the emergency room. PAST MEDICAL HISTORY 1. Severe COPD with chronic respiratory failure, maintained on home O2. 2. Polycythemia followed by Dr. Rebolledo. ALLERGIES No known allergies. HOME MEDICATIONS 1. Advair 250/50. 2. Spiriva. 3. Albuterol. 4. Enteric-coated aspirin. 5. Omeprazole. 6. Claritin-D. SOCIAL HISTORY Reformed smoker x8 years. No alcohol or illicit drugs. She now lives with her sister who smokes. She has been living with her for the last month. Her about a year ago. She does now have a primary care doctor and is seeing that physician. FAMILY HISTORY Negative for coronary artery disease. REVIEW OF SYSTEMS CONSTITUTIONAL: No fevers or chills. HEENT: Some rhinorrhea and nasal congestion. PULMONARY: As noted. CARDIAC: No chest pain or palpitations. GASTROINTESTINAL: No nausea or vomiting. GENITOURINARY: No hematuria or dysuria. ENDOCRINE: No polyuria or polydipsia. HEMATOLOGIC: No easy bruising or bleeding. SKIN: No rash. Does have polycythemia. PSYCHIATRIC: Has some depression now that her has . Unit #: [id number] #: [id number] Patient: MICHAEL MUÑOZ PHYSICAL EXAMINATION GENERAL: A white female in no distress. VITAL SIGNS: Blood pressure is 100/55, pulse 104, respiratory rate 20, and T-max 100.8. HEENT: Normocephalic and atraumatic. Pupils equal, round, and reactive. Sclerae nonicteric. Nasal passages patent. Posterior pharynx clear. Poor dentition, missing teeth. NECK: Supple. Trachea midline. No cervical or supraclavicular lymphadenopathy. LUNGS: Diminished breath sounds, prolonged expiratory phase, and mild wheeze. CARDIAC: Heart sounds distant. Regular rate and rhythm. I could not appreciate a murmur, rub, or gallop. ABDOMEN: Nontender. Bowel sounds present. No hepatosplenomegaly. EXTREMITIES: Without clubbing, cyanosis, or edema. NEUROLOGIC: Awake and oriented x3. Cranial nerves intact. Muscle strength symmetric bilaterally. Affect calm. SKIN: Warm and dry. DIAGNOSTIC STUDIES LABORATORY: BMP reviewed and unremarkable. Sodium 131 and CO2 of 35. Cardiac enzymes are negative. Lactic acid is 0.5. Coags are normal. White blood cell count 6300, hematocrit 35.5, and platelet count 285,000. IMPRESSION 1. Chronic obstructive pulmonary disease exacerbation. 2. Acute bronchitis versus possible occult pneumonia. 3. Acute on chronic respiratory failure. 4. (1) depression laterally, rule out ischemia, rule out myocardial infarction. PLAN Will check cardiac enzymes. Will have Cardiology evaluate. Will treat with inhaled bronchodilators, IV Solu-Medrol, and antibiotics. Will follow up chest x-ray tomorrow to see if there is any fluffing (2) chest x-ray consistent with developing pneumonia. Would recommend DVT prophylaxis. Will make further recommendations pending this. Dictated by Rosita Lopez TD: 06/14/2017 14:38 JOB #: [id number] HISTORY AND PHYSICAL Page 1 of 1 X Dell Page MD HISTORY AND PHYSICAL
[~2017-06-14 06:12] MED LIST changes: +AZITHROMYCIN250 MG PO; +PREDNISONE10 MG/DOSE PO
[2017-06-14 06:51] LABS: BASOPHIL# 0.1 X10e3 (0-0.3); EOSINOPHIL# 0.1 X10e3 (0-0.7); EOSINOPHIL% 0.9 % (0.0-7.0); HEMATOCRIT 35.5 % (35.0-45.0); HEMOGLOBIN 11.4 gm/dL (12.0-16.0); LYMPHOCYTE# 0.5 X10e3 (1.0-3.5); LYMPHOCYTE% 7.4 % (17.0-45.0); MEAN CELL VOLUME 96.5 FL (83-96); MEAN CORPUSCULAR HEMOGLOBIN 31.1 PG (28-34); MEAN CORPUSCULAR HGB CONC 32.2 g/dL (30-36); MEAN PLATELET VOLUME 8.9 FL (6.5-11.5); MONOCYTE# 0.5 X10e3 (0-1.0); MONOCYTE% 8.3 % (3.0-12.0); NEUTROPHIL# 5.2 X10e3 (1.5-7.1); NEUTROPHIL% 82.4 % (40-75); PLATELET COUNT 285 X10e3 (140-420); RED BLOOD COUNT 3.68 X10e (3.90-5.30); RED CELL DISTRIBUTION WIDTH 16.4 % (11.0-15.5); WHITE BLOOD COUNT 6.3 X10e3 (4.0-10.5)
[2017-06-14 07:04] LABS: POC - CKMB 1.7 ng/mL (0.0-7.9); POC - TROPONIN <0.05 ng/mL (<=0.05)
[2017-06-14 07:15] LABS: PARTIAL THROMBOPLASTIN TIME 25.5 SECONDS (23.5-31.3); PROTHROMBIN TIME (PATIENT) 10.4 SECONDS (10.0-11.7)
[2017-06-14 07:18] LABS: DIFF IND NO
[2017-06-14 07:19] LABS: ALBUMIN SERUM 2.9 g/dL (3.5-5.0); BILIRUBIN, DIRECT 0.1 mg/dL (0.0-0.2); BILIRUBIN,INDIRECT 0.3 mg/dL (0.0-0.9); BILIRUBIN,TOTAL 0.4 mg/dL (0.2-2.0); CALCIUM SERUM 8.1 mg/dL (8.4-10.2); GLOM FILT RATE Estimated 59.9 mL/min (>60); POTASSIUM 4.1 mmol/L (3.5-5.1); PROTEIN TOTAL SERUM 6.8 g/dL (6.0-8.3)
[2017-06-14 08:37] LABS: URINE SOURCE CLEAN CATCH
[2017-06-14 08:57] LABS: URINE APPEARANCE CLOUDY; URINE BILIRUBIN NEG (NEG); URINE BLOOD 1+ (NEG); URINE COLOR YELLOW; URINE GLUCOSE NEG (NEG); URINE KETONE NEG (NEG); URINE LEUKOCYTE ESTERASE 2+ (NEG); URINE NITRATE POS (NEG); URINE PH 6.5 (5-8); URINE PROTEIN 1+ (NEG); URINE SPECIFIC GRAVITY 1.016 (1.003-1.035)
[2017-06-14 08:59] LABS: CULTURE INDICATED? YES; URBCS1 AUWI 0-2 /[HPF] (0-2); URINE BACTERIA AUWI 4+ (NEGATIVE); UWBCS1 AUWI 50-100 (0-5)
[2017-06-14] MEDS ORDERED: ALBUTEROL17 GM INH (09:37)
[2017-06-14] MEDS ORDERED: CLARITIN-D1 TAB 241 (09:37)
[2017-06-14] MEDS ORDERED: OMEPRAZOLE40 M1 PO (09:38)
[2017-06-14 09:39] LABS: URINE SQUAMOUS EPITHELIAL CELL FEW /[HPF]
[2017-06-14 09:40] LABS: URINE AMORPHOUS SEDIMENT AMORP URATES; URINE YEAST PRESENT
[2017-06-14] MEDS ORDERED: CLARITIN-D1 TAB 241 PO (09:45)
[2017-06-14 15:56] LABS: %MB 1.7 % (0.0-4.0)
[2017-06-14 21:25] LABS: %MB 2.5 % (0.0-4.0); MB 2.6 ng/ml
[2017-06-15 08:14] LABS: CALCIUM SERUM 8.3 mg/dL (8.4-10.2); CREATININE SERUM 0.5 mg/dL (0.6-1.4); POTASSIUM 4.5 mmol/L (3.5-5.1)
[2017-06-15 11:16] LABS: HEMATOCRIT 31.1 % (35.0-45.0); HEMOGLOBIN 10.2 gm/dL (12.0-16.0); MEAN CELL VOLUME 96.4 FL (83-96); MEAN CORPUSCULAR HEMOGLOBIN 31.7 PG (28-34); MEAN CORPUSCULAR HGB CONC 32.8 g/dL (30-36); MEAN PLATELET VOLUME 8.8 FL (6.5-11.5); RED BLOOD COUNT 3.22 X10e (3.90-5.30); RED CELL DISTRIBUTION WIDTH 16.7 % (11.0-15.5)
[2017-06-15 11:30] LABS: INR 0.9; PARTIAL THROMBOPLASTIN TIME 23.3 SECONDS (23.5-31.3); PROTHROMBIN TIME (PATIENT) 10.2 SECONDS (10.0-11.7)
[2017-06-15 12:03] LABS: BUN/CREATININE RATIO 28.33; CALCIUM SERUM 8.5 mg/dL (8.4-10.2); CREATININE SERUM 0.6 mg/dL (0.6-1.4); POTASSIUM 4.4 mmol/L (3.5-5.1)
[2017-06-15 12:26] LABS: FREE THYROXIN (T4) 0.8 ng/dL (0.58-1.64)
[2017-06-16 02:33] LABS: HEMATOCRIT 30.3 % (35.0-45.0); HEMOGLOBIN 9.6 gm/dL (12.0-16.0); MEAN CORPUSCULAR HEMOGLOBIN 30.8 PG (28-34); MEAN CORPUSCULAR HGB CONC 31.7 g/dL (30-36); MEAN PLATELET VOLUME 9.6 FL (6.5-11.5); RED BLOOD COUNT 3.12 X10e (3.90-5.30); RED CELL DISTRIBUTION WIDTH 16.9 % (11.0-15.5)
[2017-06-16 02:36] LABS: WHITE BLOOD COUNT 12.1 X10e3 (4.0-10.5)
[2017-06-16 03:05] LABS: BUN/CREATININE RATIO 28.75; CREATININE SERUM 0.8 mg/dL (0.6-1.4); GLOM FILT RATE Estimated 78.5 mL/min (>60); POTASSIUM 3.7 mmol/L (3.5-5.1)
[2017-06-16 03:17] LABS: ANGIO %MB 8.9 % (0.0-4.0); ANGIO MB 2.5 ng/ml
[2017-06-16 10:26] LABS: ANGIO %MB 12.5 % (0.0-4.0); ANGIO MB 2.5 ng/ml
[2017-06-17 07:30] LABS: BUN/CREATININE RATIO 33.75; CALCIUM SERUM 8.3 mg/dL (8.4-10.2); CREATININE SERUM 0.8 mg/dL (0.6-1.4); GLOM FILT RATE Estimated 78.5 mL/min (>60); MAGNESIUM 1.9 mg/dL (1.6-3.0); POTASSIUM 4.3 mmol/L (3.5-5.1)
[2017-06-17 13:56] LABS: ANGIO %MB 14.2 % (0.0-4.0); ANGIO MB 2.7 ng/ml
[2017-06-19 06:48] LABS: CALCIUM SERUM 8.3 mg/dL (8.4-10.2); CREATININE SERUM 0.7 mg/dL (0.6-1.4); GLOM FILT RATE Estimated 92.2 mL/min (>60); POTASSIUM 4.4 mmol/L (3.5-5.1)
[2017-06-19 11:24] LABS: HEMATOCRIT 28.2 % (35.0-45.0); HEMOGLOBIN 8.9 gm/dL (12.0-16.0); MEAN CORPUSCULAR HEMOGLOBIN 31.3 PG (28-34); MEAN CORPUSCULAR HGB CONC 31.6 g/dL (30-36); RED BLOOD COUNT 2.85 X10e (3.90-5.30); RED CELL DISTRIBUTION WIDTH 16.9 % (11.0-15.5); WHITE BLOOD COUNT 9.6 X10e3 (4.0-10.5)
[2017-06-20 11:34] LABS: HEMATOCRIT 28.6 % (35.0-45.0); HEMOGLOBIN 9.2 gm/dL (12.0-16.0); MEAN CELL VOLUME 97.7 FL (83-96); MEAN CORPUSCULAR HEMOGLOBIN 31.6 PG (28-34); MEAN CORPUSCULAR HGB CONC 32.3 g/dL (30-36); MEAN PLATELET VOLUME 8.6 FL (6.5-11.5); RED BLOOD COUNT 2.93 X10e (3.90-5.30); RED CELL DISTRIBUTION WIDTH 17.9 % (11.0-15.5); WHITE BLOOD COUNT 11.8 X10e3 (4.0-10.5)
[2017-06-20] MEDS ORDERED: PREDNISONE10 M1 (15:00)
[2017-06-20] MEDS ORDERED: TOPROL XL PO (15:07)
[2017-06-20] MEDS ORDERED: LIPITOR40 MG PO (15:09)
[2017-06-20] MEDS ORDERED: LISINOPRIL5 MG PO (15:09)
[2017-06-20] MEDS ORDERED: METOPROLOL SUCC25 MG PO (15:25)
[2017-06-20] MEDS ORDERED: BRILINTA90 MG PO (15:26)
[2017-06-20] MEDS ORDERED: NITROGLYGERIN0.4 MG SL (15:26)
[2017-06-21] MEDS ORDERED: BACTRIM DS TAB1 EACH PO (11:32)
== END 2017-06-21 17:18 | disposition home or self-care (01) | DRG 982 ==
LOC: CED 06:12 → CEDOF 10:15 → C5C 10:15 → CEDOF 11:55 → CED 11:55 → CEDOF 17:30 → C5C 17:30
PROVIDERS: Emergency Medicine; Internal Medicine; Internal Medicine Cardiovascular Disease; Nurse Practitioner Family
PROC: B24BYZZ Ultrasonography of Heart with Aorta using Other Contrast (ICD-10-PCS; principal; 2017-06-15)
PROC: 027034Z Dilation of Coronary Artery, One Artery with Drug-eluting Intraluminal Device, Percutaneous Approach (ICD-10-PCS; 2017-06-15)
PROC: 4A023N7 Measurement of Cardiac Sampling and Pressure, Left Heart, Percutaneous Approach (ICD-10-PCS; 2017-06-15)
PROC: B213YZZ Fluoroscopy of Multiple Coronary Artery Bypass Grafts using Other Contrast (ICD-10-PCS; 2017-06-15)
PROC: B211YZZ Fluoroscopy of Multiple Coronary Arteries using Other Contrast (ICD-10-PCS; 2017-06-15)
PROC: B215YZZ Fluoroscopy of Left Heart using Other Contrast (ICD-10-PCS; 2017-06-15)
DX: J96.20 Acute and chronic respiratory failure, unspecified whether with hypoxia or hypercapnia (principal); J44.1 Chronic obstructive pulmonary disease with (acute) exacerbation; Z99.81 Dependence on supplemental oxygen; R78.81 Bacteremia; K92.2 Gastrointestinal hemorrhage, unspecified; D62 Acute posthemorrhagic anemia; N39.0 Urinary tract infection, site not specified; D75.1 Secondary polycythemia; J45.909 Unspecified asthma, uncomplicated; Z87.891 Personal history of nicotine dependence; R94.31 Abnormal electrocardiogram [ECG] [EKG]; Z79.01 Long term (current) use of anticoagulants; Z79.82 Long term (current) use of aspirin; I25.10 Atherosclerotic heart disease of native coronary artery without angina pectoris; I07.1 Rheumatic tricuspid insufficiency; B96.20 Unspecified Escherichia coli [E. coli] as the cause of diseases classified elsewhere; R73.9 Hyperglycemia, unspecified; T38.0X5A Adverse effect of glucocorticoids and synthetic analogues, initial encounter; R04.0 Epistaxis
CPT/HCPCS: 36415; 71010; 80048; 80061; 80076; 81003; 82274; 82550; 82553; 82947; 83605; 83690; 83735; 84439; 84443; 84481; 84484; 85025; 85027; 85347; 85610; 85730; 87040; 87077; 87086; 87088; 87186; 93005; 93306; 93926; 94640; 94664; 94760; 96365; 96367; 96375; 99285; C1725; C1769; C1874; G0238; J0153; J0456; J0692; J0696; J1644; J1650; J1815; J1940; J2250; J2543; J2920; J2930; J3010; J3370

== ENCOUNTER 2017-07-01 05:51 | Emergency (ER) | payer OTHER ==
[~2017-07-01] VITALS: Ht 165.1 cm; Wt 54.4 kg
--- NOTE | ~2017-07-01 | EKG ---
PATIENT: MICHAEL MUÑOZ UNIT #: [id number] Ventricular Rate: 71 BPM Atrial Rate: 71 BPM P-R Interval: 124 ms QRS Duration: 76 ms Q-T Interval: 376 ms QTC Calculation(Bezet): 408 ms P [place]: 82 degrees Calculated R [place]: 69 degrees Calculated T [place]: -94 degrees Diagnosis Line: Normal sinus rhythm Diagnosis Line: T wave abnormality, consider inferior ischemia Diagnosis Line: T wave abnormality, consider anterolateral Diagnosis Line: ischemia Diagnosis Line: Left ventricular hypertrophy Diagnosis Line: Abnormal ECG Diagnosis Line: When compared with ECG of 18-JUN-2017 06:10, Diagnosis Line: ST no longer depressed in Anterior leads Diagnosis Line: Confirmed by TRINIDAD ALEJO MD ([id number]) on 07/02/2017 Diagnosis Line: 3:02:37 PM INTERPRETING MD: MELO CELIS
--- NOTE | ~2017-07-01 | CR72 ---
[facility] A Service of [facility] RADIOLOGY TEXT RESULTS PATIENT: MICHAEL MUÑOZ LOCATION: [facility] : 53 UNIT #: [id number] AGE: [address]: Edmar Lindo MD SEX: F ORDER DR: [id number] [facility] [address] [place], [place] [address] [id number] MR#: [id number] Acc #: [id number] NAME: MICHAEL MUÑOZ. : 1955 SEX: F STUDY DATE/TIME: 07/01/2017 6:13 UNIT: [facility] ROOM: STUDY DESCRIPTION: CR Chest Single View Portable Attending Physician: Edmar Lindo M.D. Ordering Physician: Edmar Lindo M.D. Primary Care Physician: Dell Page M.D. MEDICAL IMAGING REPORT This report is preliminary unless electronic signature is present EXAM Chest x-ray, portable. HISTORY Short of air and chest pain starting today. Ran out of O2 at home. COMMENT Single frontal portable view chest timed 06:13 on 07/01/2017. COMPARISON Compared to 06/15/2017. FINDINGS Cardiac silhouette size is normal. There is no acute infiltrate. There is considerable distortion of pulmonary parenchymal architecture consistent with known chronic obstructive lung disease. There is particular scarring at the costophrenic angles. No congestive failure. No pneumothorax. No pleural effusion. IMPRESSION 1. Redemonstration of findings of chronic obstructive lung disease unchanged from prior. Dictated by... Laura Pastrana M.D. THIS IS AN ELECTRONICALLY VERIFIED REPORT Laura Pastrana M.D. at 07/02/2017 9:24 AM MARYBEL/reza TD: 07/02/2017 00:20 [facility] A Service [facility] RADIOLOGY TEXT RESULTS PATIENT: MICHAEL MUÑOZ LOCATION: [facility] : 53 UNIT #: [id number] AGE: [address]: Edmar Lindo MD SEX: F ORDER DR: JOB #: [id number] MEDICAL IMAGING REPORT Page 1 of 1 COPY
[~2017-07-01 05:51] MED LIST changes: +BACTRIM DS TAB1 EACH PO; +BRILINTA90 MG PO; +CLARITIN-D1 TAB 241; +LIPITOR40 MG PO; +LISINOPRIL5 MG PO; +METOPROLOL SUCC25 MG PO; +NITROGLYGERIN0.4 MG SL; +PREDNISONE10 M1; +TOPROL XL PO
[2017-07-01 06:24] LABS: BASOPHIL# 0.1 X10e3 (0-0.3); BASOPHIL% 1.1 % (0-2.5); EOSINOPHIL# 0.4 X10e3 (0-0.7); EOSINOPHIL% 3.8 % (0.0-7.0); HEMATOCRIT 32.3 % (35.0-45.0); HEMOGLOBIN 10.7 gm/dL (12.0-16.0); LYMPHOCYTE# 2.1 X10e3 (1.0-3.5); LYMPHOCYTE% 18.5 % (17.0-45.0); MEAN CELL VOLUME 96.6 FL (83-96); MEAN CORPUSCULAR HEMOGLOBIN 32.2 PG (28-34); MEAN CORPUSCULAR HGB CONC 33.3 g/dL (30-36); MEAN PLATELET VOLUME 8.3 FL (6.5-11.5); MONOCYTE# 0.9 X10e3 (0-1.0); MONOCYTE% 7.5 % (3.0-12.0); NEUTROPHIL# 7.9 X10e3 (1.5-7.1); NEUTROPHIL% 69.1 % (40-75); PLATELET COUNT 345 X10e3 (140-420); RED BLOOD COUNT 3.34 X10e (3.90-5.30); RED CELL DISTRIBUTION WIDTH 19.9 % (11.0-15.5); WHITE BLOOD COUNT 11.4 X10e3 (4.0-10.5)
[2017-07-01 06:31] LABS: DIFF IND NO
[2017-07-01 06:38] LABS: POC - CKMB <1.0 ng/mL (0.0-7.9); POC - TROPONIN <0.05 ng/mL (<=0.05)
[2017-07-01 06:51] LABS: ALBUMIN SERUM 3.2 g/dL (3.5-5.0); BILIRUBIN, DIRECT 0.2 mg/dL (0.0-0.2); BILIRUBIN,INDIRECT 0.9 mg/dL (0.0-0.9); BILIRUBIN,TOTAL 1.1 mg/dL (0.2-2.0); BUN/CREATININE RATIO 28.75; CALCIUM SERUM 8.6 mg/dL (8.4-10.2); CREATININE SERUM 0.8 mg/dL (0.6-1.4); GLOM FILT RATE Estimated 78.5 mL/min (>60); POTASSIUM 4.1 mmol/L (3.5-5.1); PROTEIN TOTAL SERUM 6.4 g/dL (6.0-8.3)
[2017-07-01 08:16] LABS: POC - CKMB <1.0 ng/mL (0.0-7.9)
[2017-07-01 08:17] LABS: POC - TROPONIN <0.05 ng/mL (<=0.05)
== END 2017-07-01 12:38 | disposition home or self-care (01) ==
LOC: CED 05:51
PROVIDERS: Emergency Medicine
DX: R06.02 Shortness of breath (principal); R07.9 Chest pain, unspecified; J44.9 Chronic obstructive pulmonary disease, unspecified; Z88.8 Allergy status to other drugs, medicaments and biological substances; Z79.82 Long term (current) use of aspirin; Z79.899 Other long term (current) drug therapy
CPT/HCPCS: 36415; 71010; 80048; 80076; 82553; 84484; 85025; 93005; 99285